=== PATIENT | male | born 1950 | race Caucasian/White ===

== ENCOUNTER 2018-01-07 09:26 | Day surgery (SDC) | payer OTHER ==
[~2018-01-07] VITALS: Ht 182.9 cm; Wt 85.4 kg
[2018-01-07 10:30] VITALS: BP 138/90; PULSE 77; TEMP 97.4
[2018-01-07] MEDS ORDERED: CORDARONE200 MG/TAB PO (10:33)
[2018-01-07] MEDS ORDERED: LASIX 20MG TABL20 MG PO (10:34)
[2018-01-07] MEDS ORDERED: COREG 25MG25 MG/TAB PO (10:34)
[2018-01-07] MEDS ORDERED: LIPITOR 80MG80 MG PO (10:34)
[2018-01-07] MEDS ORDERED: ADVIL COLD/SINUS PO (10:35)
[2018-01-07] MEDS ORDERED: FLONASEALLERGY NS (10:35)
[2018-01-07] MEDS ORDERED: VITAMIN D 400400 IU PO (10:35)
[2018-01-07] MEDS ORDERED: PROVENTIL0.09 MG/A1 IH (10:36)
[2018-01-07] MEDS ORDERED: STIOLTO RESPIMAT4 GM IH (10:37)
[2018-01-07] MEDS ORDERED: K-TAB10 PO (10:37)
[2018-01-07 12:10] VITALS: BP 100/77; PULSE 68; TEMP 97.6
[2018-01-07 12:25] VITALS: BP 119/81; PULSE 67
[2018-01-07 12:40] VITALS: BP 151/91; PULSE 62
[2018-01-07 12:55] VITALS: BP 137/84; PULSE 64
== END 2018-01-07 13:40 | disposition home or self-care (01) ==
LOC: SDCO 09:26
DX: Z12.11 Encounter for screening for malignant neoplasm of colon (principal); Z80.0 Family history of malignant neoplasm of digestive organs; D12.8 Benign neoplasm of rectum; K21.9 Gastro-esophageal reflux disease without esophagitis; K57.30 Diverticulosis of large intestine without perforation or abscess without bleeding; R93.3 Abnormal findings on diagnostic imaging of other parts of digestive tract; N18.9 Chronic kidney disease, unspecified; Z95.810 Presence of automatic (implantable) cardiac defibrillator; F17.210 Nicotine dependence, cigarettes, uncomplicated; J44.9 Chronic obstructive pulmonary disease, unspecified; Z79.899 Other long term (current) drug therapy; I42.9 Cardiomyopathy, unspecified; K59.00 Constipation, unspecified
CPT/HCPCS: J2704; J7120

== ENCOUNTER 2018-02-18 07:49 | Day surgery (SDC) | payer OTHER ==
[~2018-02-18] VITALS: Ht 182.9 cm; Wt 86.3 kg
[2018-02-18] VITALS (12 sets, daily range): BP systolic 93–141; BP diastolic 55–93; PULSE 53–75; TEMP 97.2–98.8
[~2018-02-18 07:49] MED LIST: ADVIL COLD/SINUS PO; CORDARONE200 MG/TAB PO; COREG 25MG25 MG/TAB PO; FLONASEALLERGY NS; K-TAB10 PO; LASIX 20MG TABL20 MG PO; LIPITOR 80MG80 MG PO; PROVENTIL0.09 MG/A1 IH; STIOLTO RESPIMAT4 GM IH; VITAMIN D 400400 IU PO
[2018-02-18] MEDS ORDERED: ROBITUSSIN100 MG/5 M PO (09:00)
[2018-02-18] MEDS ORDERED: STIOLTO RESPIMAT4 GM IH (09:02)
[2018-02-18] MEDS ORDERED: PRILOSEC 20MG20 MG PO (09:03)
[2018-02-18] MEDS ORDERED: ALDACTONE 25MG25 M1 PO (09:06)
[2018-02-18] MEDS ORDERED: ASPIRIN 81M81 MG/TA2 PO (09:07)
[2018-02-19 04:06] VITALS: BP 103/63; PULSE 65; TEMP 98.2
[2018-02-19] MEDS ORDERED: NORCO 325 MG-7.1 TAB PO (07:58)
[2018-02-19 08:44] VITALS: BP 144/76; PULSE 77; TEMP 97.8
== END 2018-02-19 10:35 | disposition home or self-care (01) ==
LOC: SDCO 07:49 → SURG 10:20 → SDCO 02-19 10:35
DX: K40.90 Unilateral inguinal hernia, without obstruction or gangrene, not specified as recurrent (principal); F17.200 Nicotine dependence, unspecified, uncomplicated; K21.9 Gastro-esophageal reflux disease without esophagitis; Z90.49 Acquired absence of other specified parts of digestive tract; Z88.6 Allergy status to analgesic agent; Z95.810 Presence of automatic (implantable) cardiac defibrillator
CPT/HCPCS: OP; C1781; J0690; J1100; J1885; J2250; J2405; J2704; J3010; J7120

== ENCOUNTER 2018-02-20 09:57 | Inpatient (IN) | payer OTHER ==
[2018-02-20] VITALS (13 sets, daily range): BP systolic 132–185; BP diastolic 81–126; PULSE 74–94; TEMP 97.2–98.5
[~2018-02-20] VITALS: Ht 182.9 cm; Wt 86.3 kg
[~2018-02-20 09:57] MED LIST changes: +ALDACTONE 25MG25 M1 PO; +ASPIRIN 81M81 MG/TA2 PO; +NORCO 325 MG-7.1 TAB PO; +PRILOSEC 20MG20 MG PO; +ROBITUSSIN100 MG/5 M PO
[2018-02-21 04:37] VITALS: BP 146/79; PULSE 78
[2018-02-21 07:33] VITALS: BP 148/83; PULSE 75; TEMP 98.4
[2018-02-21 08:54] LABS: CALCIUM 9.3 mg/dL (8.4-10.2); CREATININE, serum 1.16 mg/dL (0.66-1.25); POTASSIUM 4.6 mmol/L (3.4-5.0)
[2018-02-21 11:48] VITALS: BP 135/86; PULSE 76; TEMP 98.5
[2018-02-21 15:23] VITALS: BP 121/61; PULSE 89; TEMP 97.6
[2018-02-21 21:05] VITALS: BP 154/86; PULSE 82; TEMP 98.6
[2018-02-22 00:45] VITALS: BP 133/80; PULSE 85; TEMP 98
[2018-02-22 05:09] VITALS: BP 139/70; BP 239/70; PULSE 72; TEMP 98.3
[2018-02-22 06:30] LABS: BASO % 0.3 % (0.0-2.0); EOS # 0.2 (0.0-0.7); EOS % 2.6 % (0-4.0); GRAN # 4.6 (1.4-6.5); GRAN % 65.9 % (42.2-75.2); HEMATOCRIT 38.3 % (42.0-52.0); HEMOGLOBIN 12.7 g/dl (13.5-18.0); LYMPH # 1.1 (1.2-3.4); MEAN CELL VOLUME 99 fl (80.0-100.0); MEAN CORPUSCULAR HEMOGLOBIN 33 pg (27.0-31.0); MEAN CORPUSCULAR HGB CONC 33 g/dl (33.0-37.0); MEAN PLATELET VOLUME 11.4 fl (7.4-10.4); MONO # 1.1 (0.1-0.6); MONO % 15.9 % (1.7-9.3); PLATELET COUNT 129 K/mm3 (130-400); RED BLOOD COUNT 3.89 M/mm3 (4.20-5.60); REDCELL DISTRIBUTION WIDTH-CV 12.6 % (11.5-14.5)
[2018-02-22 06:44] LABS: CALCIUM 8.7 mg/dL (8.4-10.2); CREATININE, serum 1.18 mg/dL (0.66-1.25); POTASSIUM 4.7 mmol/L (3.4-5.0)
[2018-02-22 07:58] VITALS: BP 117/66; PULSE 78; TEMP 97.5
[2018-02-22 11:26] VITALS: BP 114/67; PULSE 64; TEMP 98.4
[2018-02-22 15:59] VITALS: BP 123/67; PULSE 64; TEMP 98
[2018-02-22 20:58] VITALS: BP 118/68; PULSE 58; TEMP 97.8
[2018-02-23 00:54] VITALS: BP 123/65; PULSE 65; TEMP 98.2
[2018-02-23 05:05] VITALS: BP 122/65; PULSE 63; TEMP 98.4
[2018-02-23 07:15] VITALS: BP 125/80; PULSE 62; TEMP 98.3
[2018-02-23 11:03] VITALS: BP 135/75; PULSE 62; TEMP 97.4
== END 2018-02-23 16:26 | disposition home or self-care (01) | DRG 988 ==
LOC: SURG 09:57 → SDCO 09:57 → SURG 02-21 07:30
PROVIDERS: Surgery
PROC: 0YQ50ZZ Repair Right Inguinal Region, Open Approach (ICD-10-PCS; principal; 2018-02-20 12:00)
DX: T85.618A Breakdown (mechanical) of other specified internal prosthetic devices, implants and grafts, initial encounter (principal); K40.31 Unilateral inguinal hernia, with obstruction, without gangrene, recurrent; K56.7 Ileus, unspecified; I42.0 Dilated cardiomyopathy; Y83.8 Other surgical procedures as the cause of abnormal reaction of the patient, or of later complication, without mention of misadventure at the time of the procedure; Z72.0 Tobacco use; I10 Essential (primary) hypertension; Z95.0 Presence of cardiac pacemaker
CPT/HCPCS: OP; G0378; G0379; J0360; J0690; J2270; J2704; J3010; J7120